=== PATIENT | male | born 1975 | race Two or more races ===

== ENCOUNTER → 2019-03-04 | Outpatient (CLI) | payer OTHER ==
[~2019-03-04] MED LIST: EZ PAQUE SUSP 12OZ BTL ONE; EZ-GAS II GRANULES (RADIOLOGY USE) PO ONE
== END | disposition home or self-care (01) ==
LOC: XY 09:44
DX: K21.9 Gastro-esophageal reflux disease without esophagitis (principal); R13.10 Dysphagia, unspecified
CPT/HCPCS: 74245